=== PATIENT | female | born 1980 | race Caucasian/White ===

== ENCOUNTER 2025-09-04 14:42 | Outpatient (REF) | payer SELFPAY ==
[2025-09-04 19:29] LABS: HCT 42.8 % (36.0-46.0); HGB 14.0 g/dL (11.2-15.7); MCH 29.9 pg (27.0-33.0); MCHC 32.7 % (32.0-36.0); MCV 91 fL (80-95); MPV 10.1 fL (8.0-11.0); Platelet Count 307 10^3/uL (130-400); RBC 4.69 10^6/uL (3.93-5.22); RDW 13.0 % (11.7-14.6); RDW-SD 43.1 fL; WBC 10.63 10^3/uL (4.4-10.8)
[2025-09-04 19:44] LABS: ALT 97 U/L (14-59); AST 45 U/L (15-37); Albumin 3.9 g/dL (3.4-5.0); Alkaline Phosphatase 136 U/L (46-116); Anion Gap 9.7 mmol/L (3-11); BUN 13 mg/dL (7-18); Bilirubin, Total 0.3 mg/dL (0.2-1.0); CO2 26.3 mmol/L (21.0-32.0); Calcium 8.8 mg/dL (8.5-10.1); Chloride 104 mmol/L (98-107); Estimated GFR 63.15 (mL/min/1.73m2); Glucose 137 mg/dL (74-106); Potassium 3.9 mmol/L (3.5-5.1); Sodium 140 mmol/L (136-145); Total Protein 7.9 g/dL (6.4-8.2)
== END 2025-09-04 14:43 | disposition home or self-care (01) ==
LOC: NCHCN 14:42
PROVIDERS: Visit Provider Physician Assistant
DX: K76.0 Fatty (change of) liver, not elsewhere classified (principal)
CPT/HCPCS: 80053; 85027